=== PATIENT | female | born 1955 | race Caucasian/White ===

== ENCOUNTER → 2018-05-16 | Outpatient (CLI) | payer MEDICAID, OTHER ==
[2015-08-30 21:00] VITALS: BP 116/83
--- NOTE | 2018-05-16 10:56 | RAD ---
DATE: 05/16/2018 EXAM: DIGITAL SCREEN BILAT W/CAD HISTORY: Screening COMPARISON: None available This study was interpreted with the benefit of Computerized Aided Detection (CAD). Breast Density: SCATTERED The breast parenchyma shows scattered fibroglandular densities. Breast parenchyma level B. FINDINGS: Minimal benign calcifications present. Small asymmetry involves the left anterior retroareolar region 3 cm from the nipple on the MLO projection. IMPRESSION: Left anterior retroareolar asymmetry. Spot compression recommended. Ultrasound may be needed. BI-RADS CATEGORY: 0 INCOMPLETE: NEEDS ADDITIONAL IMAGING EVALUATION AND/OR PRIOR MAMMOGRAMS FOR COMPARISON. RECOMMENDED FOLLOW-UP: ADD ADDITIONAL IMAGING PQRS compliance statement: Patient information was entered into a reminder system with a target due date of now for the next mammogram. Mammography is a sensitive method for finding small breast cancers, but it does not detect them all and is not a substitute for careful clinical examination. A negative mammogram does not negate a clinically suspicious finding and should not result in delay in biopsying a clinically suspicious abnormality. "Our facility is accredited by the [employer] Mammography Program."
== END | disposition home or self-care (01) ==
LOC: MAMMO 09:46
PROVIDERS: ATTEND Family Medicine
DX: Z12.31 Encounter for screening mammogram for malignant neoplasm of breast (principal)
CPT/HCPCS: 77067

== ENCOUNTER → 2018-06-04 | Outpatient (CLI) | payer OTHER ==
[2015-08-30 21:00] VITALS: BP 116/83
--- NOTE | 2018-06-04 14:36 | RAD ---
DATE: 06/04/2018 EXAM: DIGITAL DIAGNOSTIC LT, BREAST LEFT HISTORY: Suspicious screening study COMPARISON: 2018 This study was interpreted with the benefit of Computerized Aided Detection (CAD). Breast Density: SCATTERED The breast parenchyma shows scattered fibroglandular densities. Breast parenchyma level B. FINDINGS: Additional spot compression and CC tomosynthesis images of the area of suspicion in the anterior left breast were performed. They confirm the presence of a smoothly lobulated 11 mm nodule at the 12:00 retroareolar level. It is best demonstrated on the CC tomosynthesis image #49 No microcalcifications are seen. Nearby small smooth branching ducts are noted. Left breast ultrasound, 06/04/2018: A targeted ultrasound exam of the left retroareolar region was performed. At the 12:00 retroareolar level there is a 12 x 10 x 6 mm smooth elongated structure. It is predominantly anechoic with only a few low level internal echoes. Its margins are smooth. It is inseparable from adjacent smaller tubular hypoechoic structures. At the 9:00 location approximately 1 cm from the nipple there is a similar structure measuring 5 x 7 x 5 mm which appears to connect to smaller ducts. No vascular mass is seen within these structures. IMPRESSION: Ductal ectasia with a small amount of debris within these periareolar ducts as described above. Sonographic and mammographic surveillance beginning in 6 months is suggested. BI-RADS CATEGORY: 3 PROBABLY BENIGN FINDING(S)-SHORT INTERVAL FOLLOW-UP SUGGESTED RECOMMENDED FOLLOW-UP: 6M 6 MONTH FOLLOW-UP PQRS compliance statement: Patient information was entered into a reminder system with a target due date for the next mammogram. Mammography is a sensitive method for finding small breast cancers, but it does not detect them all and is not a substitute for careful clinical examination. A negative mammogram does not negate a clinically suspicious finding and should not result in delay in biopsying a clinically suspicious abnormality. "Our facility is accredited by the [employer] Mammography Program."
== END | disposition home or self-care (01) ==
LOC: US 12:35
PROVIDERS: ATTEND Family Medicine
DX: N60.42 Mammary duct ectasia of left breast (principal); N63.21 Unspecified lump in the left breast, upper outer quadrant
CPT/HCPCS: 76641; 77065

== ENCOUNTER → 2019-02-26 | Outpatient (CLI) | payer OTHER ==
[2015-08-30 21:00] VITALS: BP 116/83
--- NOTE | 2019-02-26 17:18 | RAD ---
DATE: 02/26/2019 EXAM: DIGITAL DIAGNOSTIC LT, BREAST LEFT HISTORY: Abnormal mammogram and ultrasound interval follow-up COMPARISON: 05/16/2018 screen mammographic examination and 06/05/1999 and left unilateral diagnostic mammographic exam This study was interpreted with the benefit of Computerized Aided Detection (CAD). Breast Density: SCATTERED The breast parenchyma shows scattered fibroglandular densities. Breast parenchyma level B. FINDINGS: Small asymmetries in involving the anterior left breast are stable. No new mass or distortion. No suspicious calcium. Limited left breast ultrasound exam was performed in the anterior retroareolar region at the 12:00 and 9:00 regions. At the 12:00 region 2 cm from the nipple, there is a 0.8 cm tall by 0.6 cm x 0.5 cm complicated cystic appearing structure. This corresponds with previous exam although morphology is different. This appears smaller than the prior exam. No flow evident within it. At the left breast 12:00 region in the retroareolar region, there is a 0.5 cm x 0.8 cm x 0.6 cm structure which also appears to have a complicated cystic appearance. No flow evident on color Doppler imaging. IMPRESSION: Findings which are probably complicated cysts. BI-RADS CATEGORY: 3 PROBABLY BENIGN FINDING(S)-SHORT INTERVAL FOLLOW-UP SUGGESTED RECOMMENDED FOLLOW-UP: 6M 6 MONTH FOLLOW-UP. Follow-up ultrasound examination in 6 months is recommended to assess stability. PQRS compliance statement: Patient information was entered into a reminder system with a target due date for the next mammogram. Mammography is a sensitive method for finding small breast cancers, but it does not detect them all and is not a substitute for careful clinical examination. A negative mammogram does not negate a clinically suspicious finding and should not result in delay in biopsying a clinically suspicious abnormality. "Our facility is accredited by the [employer] Mammography Program."
== END | disposition home or self-care (01) ==
LOC: MAMMO 12:34
PROVIDERS: ATTEND Family Medicine
DX: N64.89 Other specified disorders of breast (principal)
CPT/HCPCS: 76641; 77065